=== PATIENT | female | born 1985 | race Caucasian/White ===

== ENCOUNTER 2024-08-13 17:39 | Emergency (ER) | payer OTHER ==
[2024-08-13 17:58] VITALS: PULSE 76; TEMP 98.2
--- NOTE | 2024-08-13 18:15 | ED ---
General Adult HPI - General Source: patient, RN notes reviewed Mode of arrival: ambulatory Limitations: no limitations <Gabriela Buckoe - Last Filed: 08/13/24 18:14> - General Source: patient, RN notes reviewed Mode of arrival: ambulatory Limitations: no limitations <FreidaRanjan - Last Filed: 08/13/24 21:33> - General Chief complaint: Vaginal Bleeding Stated complaint: 7 weeks , bleeding abd pain Time Seen by Provider: 08/13/24 17:51 - History of Present Illness Initial comments: Quick [id number] female, [id number] presenting to emergency department at approximately 7 weeks gestation for complaints of vaginal bleeding that started last night. She endorses lower abdominal pain addition to nausea and vomiting. Patient does have a history of left-sided ectopic with left tube removal. (Kristi Buck) - Related Data Allergies Allergy/AdvReac Type Severity Reaction Status Date / Time No Known Allergies Allergy Verified 08/13/24 17:58 Review of Systems ROS Other: All systems not noted in ROS Statement are negative. <Kristi Buck - Last Filed: 08/13/24 18:14> ROS Other: All systems not noted in ROS Statement are negative. <Ranjan Guan - Last Filed: 08/13/24 21:33> ROS Statement: Those systems with pertinent positive or pertinent negative responses have been documented in the HPI. Past Medical History Past Medical History: No Reported History History of Any Multi-Drug Resistant Organisms: None Reported Additional Past Surgical History / Comment(s): left fallopian tube removed Past Psychological History: ADD/ADHD, Anxiety, Bipolar, Depression, PTSD Smoking Status: Vaper <Gabriela Buckoe - Last Filed: 08/13/24 18:14> General Exam Limitations: no limitations <StiGabriela barreraoe - Last Filed: 08/13/24 18:14> Limitations: no limitations General appearance: alert, in no apparent distress Head exam: Present: atraumatic, normocephalic, normal inspection Eye exam: Present: normal appearance, PERRL, EOMI. Absent: scleral icterus, conjunctival injection, periorbital swelling ENT exam: Present: normal exam, mucous membranes moist Neck exam: Present: normal inspection. Absent: tenderness, meningismus, lymphadenopathy Respiratory exam: Present: normal lung sounds bilaterally. Absent: respiratory distress, wheezes, rales, rhonchi, stridor Cardiovascular Exam: Present: regular rate, normal rhythm, normal heart sounds. Absent: systolic murmur, diastolic murmur, rubs, gallop, clicks GI/Abdominal exam: Present: soft, tenderness (Positive left adnexal tenderness without guarding), normal bowel sounds. Absent: distended, guarding, rebound, rigid Extremities exam: Present: normal inspection, full ROM, normal capillary refill. Absent: tenderness, pedal edema, joint swelling, calf tenderness Back exam: Present: normal inspection Neurological exam: Present: alert, oriented X3, CN II-XII intact Psychiatric exam: Present: normal affect, normal mood Skin exam: Present: warm, dry, intact, normal color. Absent: rash <Ranjan Guan - Last Filed: 08/13/24 21:33> - General Exam Comments Initial Comments: Visual Physical Exam Vital signs reviewed General: Well-appearing, nontoxic, no acute distress. Head: Normocephalic, atraumatic Eyes: PERRLA, EOMI ENT: Airway patent Chest: Nonlabored breathing Skin: No visual rash, normal skin tone Neuro: Alert and oriented 3 Musculoskeletal: No gross abnormalities (Kristi Buck) Course Vital Signs 08/13/24 17:53 Temperature 98.2 F Pulse Rate 76 Respiratory 16 Rate Blood Pressure 123/73 O2 Sat by Pulse 100 Oximetry Medical Decision Making <Kristi Buck - Last Filed: 08/13/24 18:14> - Lab Data Result diagrams: 08/13/24 18:16 08/13/24 18:16 <Ranjan Guan - Last Filed: 08/13/24 21:33> - Medical Decision Making I completed the quick note portion of this chart signed Krsiti Buck PA-C (Kristi Buck) Was pt. sent in by a medical professional or institution ([facility] Bright, CAMPUS WELLNESS COORDINATOR, urgent care, hospital, or halfway...) When possible be specific @ -[No] Did you speak to anyone other than the patient for history (EMS, parent, family, police, friend...)? What history was obtained from this source @ -[No] Did you review nursing and triage notes (agree or disagree)? Why? @ -[I reviewed and agree with nursing and triage notes] Were old charts reviewed (outside hosp., previous admission, EMS record, old EKG, old radiological studies, urgent care reports/EKG's, halfway records)? Report findings @ -[No old charts were reviewed] Differential Diagnosis (chest pain, altered mental status, abdominal pain women, abdominal pain men, vaginal bleeding, weakness, fever, dyspnea, syncope, headache, dizziness, GI bleed, back pain, seizure, CVA, palpatations, mental health, musculoskeletal)? @ -Differential Vaginal Bleeding: Spontaneous , threatened , molar , ectopic , bloody show, incompetent cervix, abruptioplacenta, placenta previa, uterine rupture, dysfunctional uterine bleeding, hemorrhage, uterine fibroids, this is not meant to be an all-inclusive list. EKG interpreted by me (3pts min.). @ -Not done X-rays interpreted by me (1pt min.). @ -[None done] CT interpreted by me (1pt min.). @ -[None done] U/S interpreted by me (1pt. min.). @ -[None done] What testing was considered but not performed or refused? (CT, X-rays, U/S, labs)? Why? @ -[None] What meds were considered but not given or refused? Why? @ -[None] Did you discuss the management of the patient with other professionals (professionals i.e. , PA, CAMPUS WELLNESS COORDINATOR, lab, RT, psych nurse, geriatric social work professor, prescription benefit specialist, teacher, business services officer, case specialist)? Give summary @ -[No] Was smoking cessation discussed for >3mins.? @ -[No] Was critical care preformed (if so, how long)? @ -[No] Were there social determinants of health that impacted care today? How? (Homelessness, low income, unemployed, alcoholism, drug addiction, transportation, low edu. Level, literacy, decrease access to med. care, shelter, rehab)? @ -[No] Was there de-escalation of care discussed even if they declined (Discuss DNR or withdrawal of care, Hospice)? DNR status @ -[No] What co-morbidities impacted this encounter? (DM, HTN, Smoking, COPD, CAD, Cancer, CVA, ARF, Chemo, Hep., AIDS, mental health diagnosis, sleep apnea, morbi d obesity)? @ -[None] Was patient admitted / discharged? Hospital course, mention meds given and rou te, prescriptions, significant lab abnormalities, going to OR and other pertinent info. @ -[hospital course] Undiagnosed new problem with uncertain prognosis? @ -[No] Drug Therapy requiring intensive monitoring for toxicity (Heparin, Nitro, Insulin, Cardizem)? @ -[No] Were any procedures done? @ -[No] Diagnosis/symptom? @ -Subchorionic hemorrhage Acute, or Chronic, or Acute on Chronic? @ -Acute Uncomplicated (without systemic symptoms) or Complicated (systemic symptoms)? @ -Uncomplicated Side effects of treatment? @ -[No] Exacerbation, Progression, or Severe Exacerbation? @ -[No] Poses a threat to life or bodily function? How? (Chest pain, [place], MA, pneumonia, PE, COPD, DKA, ARF, appy, cholecystitis, CVA, Diverticulitis, Homicidal, Suicidal, threat to staff... and all critical care pts) @ -[No] (Ranjan Guan) - Lab Data Lab Results 08/13/24 08/13/24 08/13/24 Range/Units 18:16 18:16 18:16 WBC 9.49 (4.50-10.00) 10*3/uL RBC 3.80 L (4.10-5.20) 10*6/uL Hgb 11.9 L (12.0-15.0) g/dL Hct 35.2 L (37.2-46.3) % MCV 92.6 (80.0-97.0) fL MCH 31.3 (27.0-32.0) pg MCHC 33.8 (32.0-37.0) g/dL Plt Count 222 (140-440) 10*3/uL MPV 10.5 (9.5-12.2) fL Immature Gran % (Auto) 0.3 % Neutrophils % 72.4 % Lymphocytes % 21.9 % Monocytes % 4.7 % Eosinophils % 0.4 % Basophils % 0.3 % Immature Gran # 0.03 (0.00-0.04) 10*3/uL Neutrophils # 6.86 (1.80-7.70) 10*3/uL Lymphocytes # 2.08 (0.90-5.00) 10*3/uL Monocytes # 0.45 (0.20-1.00) 10*3/uL Eosinophils # 0.04 (0.04-0.35) 10*3/uL Basophils # 0.03 (0.00-0.10) 10*3/uL Sodium 136 L (137-145) mmol/L Potassium 3.7 (3.5-5.1) mmol/L Chloride 104 (98-107) mmol/L Carbon Dioxide 23 (22-30) mmol/L Anion Gap 9 mmol/L BUN 13 (7-17) mg/dL Creatinine 0.68 (0.52-1.04) mg/dL Est GFR (CKD-EPI)AfAm >90 (>60 ml/min/1.73 sqM) Est GFR (CKD-EPI)NonAf >90 (>60 ml/min/1.73 sqM) Glucose 116 H (74-99) mg/dL Calcium 9.1 (8.4-10.2) mg/dL Total Bilirubin 0.3 (0.2-1.3) mg/dL AST 23 (14-36) U/L ALT 28 (4-34) U/L Alkaline Phosphatase 40 (38-126) U/L Total Protein 6.3 (6.3-8.2) g/dL Albumin 3.7 (3.5-5.0) g/dL Urine Color Colorless Urine Appearance Cloudy H (Clear) Urine pH 5.5 (5.0-8.0) Ur Specific [place] 1.021 (1.001-1.035) Urine Protein Negative (Negative) Urine Glucose (UA) Negative (Negative) Urine Ketones Negative (Negative) Urine Blood Moderate H (Negative) Urine Nitrite Negative (Negative) Urine Bilirubin Negative (Negative) Urine Urobilinogen <2.0 (<2.0) mg/dL Ur Leukocyte Esterase Negative (Negative) Urine RBC <1 (0-5) /hpf Urine WBC 4 (0-5) /hpf Ur Squamous Epith Cells 12 H (0-4) /hpf Urine Mucus Rare H (None) /hpf Disposition <Kristi Buck - Last Filed: 08/13/24 18:14> Is patient prescribed a controlled substance at d/c from ED?: No <Ranjan Guan - Last Filed: 08/13/24 21:33> Clinical Impression: Subchorionic hemorrhage in first trimester Disposition: HOME SELF-CARE Condition: Good Instructions (If sedation given, give patient instructions): Subchorionic Hemorrhage (ED) Additional Instructions: Pelvic rest and avoid exertion/heavy lifting until follow-up with MEDICAL TRANSCRIPTION SUPERVISOR for further evaluation. Referrals: Nonstaff,Physician [Primary Care Provider] - 1-2 days Carlos Billingsley MD [STAFF PHYSICIAN] - 1-2 days
--- NOTE | 2024-08-13 19:20 | US ---
EXAMINATION TYPE: Transabdominal DATE OF EXAM: 08/13/2024 7:02 PM COMPARISON: NONE CLINICAL INDICATION: Female, 38 years old with history of 7 weeks, bleeding; heavier bleeding yesterd ay is now lightening, h/o left tubal and removal of left tube Mar 2024 TECHNIQUE: OBTA with grayscale and color Doppler imaging including first trimester . FINDINGS: EXAM MEASUREMENTS: GESTATIONAL AGE / DATING Physician Established: (7 weeks/2 days) EDC: 03/30/2025 Dates by LMP: LMP unknown Dates by First Scan: No previous this is first scan Dates by Current Scan for: (6 weeks/5 days) EDC: 04/03/2025 MATERNAL ANATOMY Uterus: 9.7 x 6.5 x 5.1cm Right Ovary: not seen due to bowel gas and enlarging UT Left Ovary: 3.0 x 3.3 x 3.1cm, 2.3 x 1.8 x 2.1cm cystic area Post CDS / Adnexa: wnl Presence of free fluid: no Presence of corpus luteal cyst: not seen Presence of subchorionic bleed: hypoechoic area toward GELY = 2.0 x 1.7 x 1.1cm GESTATION / SURVEY CRL: 0.7cm (6 weeks/5 days) Gestational Sac morphology: Normal Yolk Sac (normal less than 6mm): 0.3cm Cardiac Activity/Heart Rate: 139 bpm Rhythm: Normal IUP: Viable IUP Date of LMP: unknown Beta HcG (if available): npt done yet IMPRESSION: 1. Single live intrauterine with calculated ultrasound age of 6 weeks 5 days by crown rump length with an estimated date of delivery of 04/03/2025. 2. Tiny subchorionic hemorrhage [facility], , 08/13/2024 7:18 PM
[2024-08-13 20:33] LABS: Basophils # (A) 0.03 10*3/uL (0.00-0.10); Basophils % (A) 0.3 %; Eosinophils # (A) 0.04 10*3/uL (0.04-0.35); Eosinophils % (A) 0.4 %; HCT 35.2 % (37.2-46.3); HGB 11.9 g/dL (12.0-15.0); Lymphocytes # (A) 2.08 10*3/uL (0.90-5.00); Lymphocytes % (A) 21.9 %; MCH 31.3 pg (27.0-32.0); MCHC 33.8 g/dL (32.0-37.0); MCV 92.6 fL (80.0-97.0); Mean Platelet Volume 10.5 fL (9.5-12.2); Monocytes # (A) 0.45 10*3/uL (0.20-1.00); Monocytes % (A) 4.7 %; Neutrophils # (A) 6.86 10*3/uL (1.80-7.70); Neutrophils % (A) 72.4 %; Platelet Count 222 10*3/uL (140-440); RDW 12.9 % (11.5-14.5); WBC 9.49 10*3/uL (4.50-10.00)
[2024-08-13 20:46] LABS: Appearance,Urine Cloudy (Clear); Bilirubin,Urine Negative (Negative); Blood,Urine Moderate (Negative); Color,Urine Colorless; Glucose,Urine (UA) Negative (Negative); Ketones,Urine Negative (Negative); Leukocyte Esterase,Urine Negative (Negative); Mucus,Urine Rare /hpf; Nitrite,Urine Negative (Negative); PH, Urine 5.5 (5.0-8.0); Protein,Urine Negative (Negative); RBC,Urine <1 /hpf (0-5); Specific Gravity,Urine 1.021 (1.001-1.035); Squamous Epithelial Cell,Urine 12 /hpf (0-4); Urobilinogen,Urine <2.0 mg/dL (<2.0); WBC,Urine 4 /hpf (0-5)
[2024-08-13 21:02] LABS: ALT 28 U/L (4-34); AST 23 U/L (14-36); African American GFR (CKD) >90 (>60 ml/min/1.73 sqM); Albumin 3.7 g/dL (3.5-5.0); Alkaline Phosphatase 40 U/L (38-126); Anion Gap 9 mmol/L; Blood Urea Nitrogen 13 mg/dL (7-17); Calcium 9.1 mg/dL (8.4-10.2); Carbon Dioxide 23 mmol/L (22-30); Chloride 104 mmol/L (98-107); Glucose 116 mg/dL (74-99); Non-African American GFR(CKD) >90 (>60 ml/min/1.73 sqM); Potassium 3.7 mmol/L (3.5-5.1); Sodium 136 mmol/L (137-145); Total Bilirubin 0.3 mg/dL (0.2-1.3); Total Protein 6.3 g/dL (6.3-8.2)
[2024-08-13 22:24] LABS: HCG,Quantitative Serum 71544.5 mIU/mL
[2024-08-13 22:53] VITALS: BP 126/78; RESP 18
== END 2024-08-13 22:47 | disposition home or self-care (01) ==
LOC: EC 17:39
DX: O46.91 Antepartum hemorrhage, unspecified, first trimester (principal); O99.331 Smoking (tobacco) complicating pregnancy, first trimester; F17.290 Nicotine dependence, other tobacco product, uncomplicated; Z3A.01 Less than 8 weeks gestation of pregnancy
CPT/HCPCS: 36415; 76801; 80053; 81001; 84702; 85025; 86900; 86901; 99284